=== PATIENT | female | born 1970 | race Caucasian/White ===

== ENCOUNTER 2017-03-10 19:20 | Emergency (ER) | payer MEDICAID ==
[~2017-03-10] VITALS: Ht 165.1 cm; Wt 74.8 kg
[2017-03-10 19:38] LABS: *BILIRUBIN,URIN NEGATIVE (NEGATIVE); *BLOOD, URINE 1+ (NEGATIVE); *CLARITY,URINE SLIGHTLY CLOUDY (CLEAR); *COLOR,URINE YELLOW (YELLOW); *KETONES,URINE 1+ (NEGATIVE); *PROTEIN,URINE NEGATIVE (NEGATIVE); *UROBILINOGEN,URINE 0.2 E.U./dl (NORMAL); NITRITE, URINE NEGATIVE (NEGATIVE)
--- NOTE | 2017-03-10 19:45 | NUR ---
Dr Bonilla into eval patient
[2017-03-10] MEDS ORDERED: INSULIN (19:48)
[2017-03-10] MEDS ORDERED: [UNRECOGNIZED DRUG - REMARK] (19:48)
[2017-03-10 19:54] LABS: LEUKOCYTE ESTERASE ,URINE TRACE (NEGATIVE); UGLUCOSE 2+ (NEGATIVE)
[2017-03-10 19:55] LABS: BACTERIA,URINE MANY /HPF (NONE SEEN); SQUAMOUS EPITHELIAL CELL,UR MODERATE /HPF (NONE SEEN)
[2017-03-10] MEDS ORDERED: IV NORMAL SALINE 1000 ML BAG IV ONE (20:00)
[2017-03-10] MEDS ORDERED: ONDANSETRON 4 MG/2 ML VIAL IV ONE (20:15)
[2017-03-10] MEDS ORDERED: MORPHINE SULFATE 2 MG/1 ML DISP.SYRIN IV ONE (20:15)
[2017-03-10 20:26] LABS: BASOPHILS % (AUTO) 0.1 % (0.0-2.0); EOSINOPHILS % (AUTO) 0.3 % (0.0-7.0); HEMATOCRIT 39.6 % (37-47); HEMOGLOBIN 13.1 G/DL (12.0-16.0); LYMPHOCYTES # (AUTO) 0.7 K/UL (0.8-4.8); LYMPHOCYTES % (AUTO) 5.8 % (20.5-51.5); MEAN CORPUSCULAR HEMOGLOBIN 26.3 UUG (27.0-31.0); MEAN CORPUSCULAR HGB CONC 33 g/dL (32.0-37.0); MEAN CORPUSCULAR VOLUME 79.6 FL (81.0-99.0); MONOCYTES # (AUTO) 1.1 K/UL (0.1-1.30); MONOCYTES % (AUTO) 8.6 % (0.0-11.0); NEUTROPHILS # (AUTO) 10.6 K/UL (1.8-8.9); NEUTROPHILS % (AUTO) 85.2 % (38.5-71.5); PLATELET COUNT (AUTO) 209 K/UL (150-450); RED BLOOD CELL COUNT(AUTO) 4.98 MIL/UL (4.2-5.4); WHITE BLOOD COUNT (AUTO) 12.4 K/UL (4.0-11.2)
[2017-03-10 20:35] LABS: ABG BASE EXCESS -3.1 mmol/L; ABG HCO3 21.3 mmol/L; ABG PCO2 36.3 mmHg (35.0-45.0); ABG PH 7.387 (7.350-7.450); ABG PO2 61.7 mmHg (75.0-100.0); ABG SITE RIGHT BRACHIAL; ABG TOTAL HEMOGLOBIN 13.4 G/dL (12.0-16.0); COHb 2.1 % (0.5-1.5); MetHb 0.1 % (0.0-1.5); O2Hb 89.6 % (94.0-97.0)
[2017-03-10] MEDS ORDERED: MORPHINE SULFATE 4 MG/1 ML DISP.SYRIN ONE (20:39)
[2017-03-10] MEDS ORDERED: ONDANSETRON 4 MG/2 ML VIAL ONE (20:40)
[2017-03-10 20:45] LABS: BILIRUBIN,DIRECT 0.1 mg/dL (0.0-0.2); BILIRUBIN,TOTAL 0.9 mg/dL (0.2-1.0); CREATININE 0.8 mg/dL (0.6-1.3); POTASSIUM 3.9 mmol/L (3.5-5.1); TOTAL PROTEIN, SERUM 8.7 g/dL (6.4-8.2)
[2017-03-10 20:58] LABS: *URINE HCG, QUAL NEGATIVE (NEGATIVE)
[2017-03-10 21:35] LABS: BAND % (MANUAL) 12 % (0-10); LYMPHOCYTES % (MANUAL) 8 % (20-40); MONOCYTES % (MANUAL) 10 % (2-10); NEUTROPHILS % (MANUAL) 70 % (42-75)
--- NOTE | 2017-03-10 23:10 | NUR ---
IV removed. Catheter intact and site benign. Pressure and 4x4 gauze applied to site. No bleeding noted.
--- NOTE | 2017-03-10 23:32 | NUR ---
Patient discharged to home in stable conditon WITH Taking patient home. Written and verbal after care instructions given. Patient verbalizes understanding of instructions. Walked out of ER with steady gait. No distress noted
[2017-03-10 23:33] VITALS: BP 155/88
[2017-03-10 23:47] LABS: VENT MODE Mask - Venturi
[2017-03-11] MEDS ORDERED: METF10002 PO (21:47)
[2017-03-11] MEDS ORDERED: INSU100V7 SQ (21:47)
== END 2017-03-10 23:36 | disposition home or self-care (01) ==
LOC: ER 19:21
DX: N13.2 Hydronephrosis with renal and ureteral calculous obstruction (principal); E11.65 Type 2 diabetes mellitus with hyperglycemia; N83.201 Unspecified ovarian cyst, right side; N28.1 Cyst of kidney, acquired; Z79.4 Long term (current) use of insulin; Z88.0 Allergy status to penicillin; Z90.49 Acquired absence of other specified parts of digestive tract
CPT/HCPCS: 36415; 36600; 71010; 74176; 80048; 80076; 81001; 82962; 83605; 84703; 85025; 85730; 87040 ×2; 87077; 87086; 87186; 93005; 96361; 96374; 99285; A4663; J2270; J2405; J7030 ×2; J7040

== ENCOUNTER 2017-03-11 21:12 | Inpatient (IN) | payer MEDICAID ==
[~2017-03-11] VITALS: Ht 165.1 cm; Wt 79.4 kg
[~2017-03-11 21:12] MED LIST: INSULIN; [UNRECOGNIZED DRUG - REMARK]
[2017-03-11] MEDS ORDERED: NITROFURANTOIN/NITROFURAN MAC 100 MG CAPSULE PO ONE (21:45)
[2017-03-11] MEDS ORDERED: HYDROMORPHONE 1 MG/1 ML DISP.SYRIN IV ONE (21:45)
[2017-03-11] MEDS ORDERED: ONDANSETRON 4 MG/2 ML VIAL IV ONE (21:45)
[2017-03-11] MEDS ORDERED: IV NORMAL SALINE 1000 ML BAG IV ONE (21:45)
[2017-03-11] MEDS ORDERED: CEFTRIAXONE 1 G in IV DEXTROSE 5% 50 ML IV ONE (21:45)
[2017-03-11] MEDS ORDERED: METF10002 PO (21:47)
[2017-03-11] MEDS ORDERED: INSU100V7 SQ (21:47)
[2017-03-11 21:56] LABS: BASOPHILS % (AUTO) 0.2 % (0.0-2.0); EOSINOPHILS % (AUTO) 0.2 % (0.0-7.0); HEMATOCRIT 33.9 % (37-47); LYMPHOCYTES # (AUTO) 1.4 K/UL (0.8-4.8); LYMPHOCYTES % (AUTO) 9.8 % (20.5-51.5); MEAN CORPUSCULAR HEMOGLOBIN 25.8 UUG (27.0-31.0); MEAN CORPUSCULAR HGB CONC 33 g/dL (32.0-37.0); MEAN CORPUSCULAR VOLUME 79.4 FL (81.0-99.0); MONOCYTES # (AUTO) 1.3 K/UL (0.1-1.30); NEUTROPHILS # (AUTO) 11.6 K/UL (1.8-8.9); NEUTROPHILS % (AUTO) 80.8 % (38.5-71.5); PLATELET COUNT (AUTO) 199 K/UL (150-450); RED BLOOD CELL COUNT(AUTO) 4.27 MIL/UL (4.2-5.4); WHITE BLOOD COUNT (AUTO) 14.3 K/UL (4.0-11.2)
[2017-03-11 22:04] LABS: CREATININE 0.6 mg/dL (0.6-1.3); POTASSIUM 3.6 mmol/L (3.5-5.1)
[2017-03-11] MEDS ORDERED: HYDROMORPHONE 1 MG/1 ML DISP.SYRIN ONE (22:04)
[2017-03-11] MEDS ORDERED: CEFTRIAXONE 1 G VIAL ONE (22:05)
[2017-03-11] MEDS ORDERED: NITROFURANTOIN/NITROFURAN MAC 100 MG CAPSULE ONE (22:05)
[2017-03-11] MEDS ORDERED: ONDANSETRON 4 MG/2 ML VIAL ONE (22:05)
--- NOTE | 2017-03-11 22:07 | NUR ---
PER ER MD, PATIENT DOES NOT QUALIFY FOR SEPSIS/SIRS CRITERIA
[2017-03-11 22:10] LABS: BILIRUBIN,DIRECT 0.2 mg/dL (0.0-0.2); BILIRUBIN,TOTAL 1.2 mg/dL (0.2-1.0); TOTAL PROTEIN, SERUM 7.7 g/dL (6.4-8.2)
[2017-03-11] MEDS ORDERED: INSULIN REGULAR, HUMAN 1,000 UNITS/10 ML VIAL IV ONE (22:15)
[2017-03-11] MEDS ORDERED: TDAP DIPH,PERTUSS,TET VAC/PF 0.5 ML DISP.SYRIN IM ONE (22:30)
[2017-03-11] MEDS ORDERED: LIDOCAINE HCL 2% 20 ML VIAL TP ONE (22:30)
[2017-03-11] MEDS ORDERED: INSULIN REGULAR, HUMAN 300 UNIT/3 ML VIAL ONE (22:39)
--- NOTE | 2017-03-12 01:18 | NUR ---
Panel call placed at this time. Awaiting call back from [employer] Gallery Assistant
[2017-03-12] MEDS ORDERED: IV NS 1000 ML 1,000 ML IV ONE (01:30)
[2017-03-12] MEDS ORDERED: CEFTRIAXONE 1 G in IV DEXTROSE 5% 50 ML IV SCH (01:30)
[2017-03-12] MEDS ORDERED: MAGNESIUM HYDROXIDE 30 ML LIQUID UDC PO PRN (01:30)
[2017-03-12] MEDS ORDERED: Z GUARD REMEDY PASTE 57 GM TUBE TOP PRN (01:30)
[2017-03-12] MEDS ORDERED: ONDANSETRON IV *ER 4 MG/2 ML VIAL IV ONE (01:45)
[2017-03-12] MEDS ORDERED: ONDANSETRON 4 MG/2 ML VIAL ONE ×2 (01:56→06:55)
--- NOTE | 2017-03-12 01:58 | NUR ---
Pt. admitted to Med Surg , under care of Dr. Coleman. Dx : Pyelonephritis Belongs List completed
[2017-03-12 02:15] VITALS: BP 125/65
--- NOTE | 2017-03-12 02:20 | NUR ---
RECEIVED PATIENT FROM E.. ADMITTED DUE TO LEFT-SIDED FLANK PAIN. NOTED DR. ARITA ABOUT ADMISSION. ALERT AND ORIENTED X4. STARTED NS AT 100ML/HR VIA RT AC. GIVEN DOSE OF IV ABX ORDERED. ORIENTED PATIENT ABOUT THE ROOM FACILITY. CALL LIGHT WITHIN REACH.
[2017-03-12] MEDS ORDERED: CEFTRIAXONE 1 G VIAL ONE (03:05)
[2017-03-12] MEDS ORDERED: DEXTROSE 50% 50 ML DISP.SYRIN IV PRN (03:30)
[2017-03-12 06:16] VITALS: BP 147/76
[2017-03-12] MEDS: BLOOD SUGAR DIAGNOSTIC 1 EACH STRIP VI SCH ×4 (06:38→20:44)
[2017-03-12] MEDS: ONDANSETRON 4 MG/2 ML VIAL IV PRN (06:42)
--- NOTE | 2017-03-12 07:25 | NUR ---
RECEIVED REPORT FROM CREDIT VERIFIER NURSE, PATIENT IN BED ASLEEP, NO EVIDENCE OF DISTRESS NOTED. BED IN LOW POSITION, SIDE RAILS UP X2.
[2017-03-12] MEDS: METFORMIN HCL 500 MG TABLET PO SCH ×2 (08:11→17:07)
[2017-03-12] MEDS ORDERED: METFORMIN HCL 850 MG TABLET PO SCH (09:00)
[2017-03-12] MEDS ORDERED: INSULIN GLARGINE,HUM 300 UNITS/3 ML CARTRIDGE SQ SCH (09:00)
[2017-03-12] MEDS: INSULIN DETEMIR 300 UNIT/3 ML CARTRIDGE SQ SCH ×2 (09:37→16:52)
[2017-03-12] MEDS: INSULIN REGULAR, HUMAN 300 UNIT/3 ML VIAL SQ PRN ×4 (09:38→20:51)
[2017-03-12 10:40] VITALS: BP 132/64
[2017-03-12] MEDS: ACETAMINOPHEN 325 MG TABLET PO PRN ×2 (10:40→16:49)
--- NOTE | 2017-03-12 10:52 | NUR ---
UPON TAKING ROUTINE VITALS, PATIENT'S TEMPERATURE NOTED TO BE 102.7, COOLING MEASURES INITIATED, TYLENOL GIVEN, AND LACTIC ACID LEVEL ORDERED ALONG WITH BLOOD CULTURES.
[2017-03-12] MEDS: GENTAMICIN SULFATE IV SCH (11:30)
[2017-03-12] MEDS: DEXTROSE 5% IV SCH (11:30)
--- NOTE | 2017-03-12 11:37 | NUR ---
Clinical Pharmacy Note: Gentamicin Pharmacy to Dose Subjective: To start gentamicin in this 46 y/o female for indication of UTI Objective: height 165 cm weight 79kg IBW 57 kg DW 65.8 BUN 10 Scr 0.6 Wbc 14.3 Temp 102.9 Assessment/Plan As patient appears to have no exclusion criteria for extended dosing, will start gentamicin 450mg (~6.8mg/kg) Q24hr per protocol for estimated trough 0.01, peak 21.1. First dose today at 1130. Ordered random 12hr post first dose, due tonight at 2330. Will check level tomorrow am and adjust once daily dosing to longer frequency if needed based on level. Will change dosing to conventional if renal function or clinical status changes. Will follow
--- NOTE | 2017-03-12 11:51 | NUR ---
PATIENT'S TEMPERATURE HAS REDUCED DOWN TO 101.4. LACTIC ACID LEVEL RETURNED FROM LAB 1.1.
[2017-03-12 16:00] VITALS: BP 108/57
--- NOTE | 2017-03-12 16:40 | NUR ---
PATIENT'S TEMPERATURE IS TRENDING DOWNWARD IN EXPECTED DIRECTION. COOLING MEASURES CONTINUE AND ADDITIONAL TYLENOL ADMINISTERED.
--- NOTE | 2017-03-12 16:49 | NUR ---
Patient's fever continues to trend down. Additional tylenol given, and cooling measures continued.
--- NOTE | 2017-03-12 18:49 | NUR ---
Patient is in bed, no evidence of distress noted, bed in low position, side rails up x2.
[2017-03-12 20:00] VITALS: BP 100/52
--- NOTE | 2017-03-12 20:00 | NUR ---
PT RECEIVED LAYING IN BED SEMI FOWLERS, NO ACUTE DISTRESS NOTED. PT HAS HEP LOCK IN RIGHT AC, INTACT AND PATENT. ON ROOM AIR. DENIES ANY PHYSICAL DISCOMFORT. WILL CONTINUE TO MONITOR FOR SAFETY.
[2017-03-12] MEDS: CEFTRIAXONE 1 G in IV DEXTROSE 5% 50 ML IV SCH (20:36)
[2017-03-13 00:25] LABS: *BILIRUBIN,URIN NEGATIVE (NEGATIVE); *BLOOD, URINE 1+ (NEGATIVE); *CLARITY,URINE CLEAR (CLEAR); *COLOR,URINE YELLOW (YELLOW); *KETONES,URINE 4+ (NEGATIVE); *PROTEIN,URINE 1+ (NEGATIVE); LEUKOCYTE ESTERASE ,URINE TRACE (NEGATIVE); NITRITE, URINE NEGATIVE (NEGATIVE)
[2017-03-13 00:40] LABS: UGLUCOSE 2+ (NEGATIVE)
[2017-03-13 00:41] LABS: BACTERIA,URINE NONE SEEN /HPF (NONE SEEN); SQUAMOUS EPITHELIAL CELL,UR MODERATE /HPF (NONE SEEN); YEAST,URINE MANY /HPF (NONE SEEN)
[2017-03-13] MEDS: ONDANSETRON 4 MG/2 ML VIAL IV PRN (00:53)
--- NOTE | 2017-03-13 01:00 | NUR ---
PT HAD EPISODE OF VOMITING X1, BROWN AND LIQUID IN COLOR. PT GIVEN ZOFRAN IV, TOLERATED WELL. WILL CONTINUE TO MONITOR FOR SAFETY.
[2017-03-13 06:28] LABS: BASOPHILS % (AUTO) 0.2 % (0.0-2.0); EOSINOPHILS % (AUTO) 0.3 % (0.0-7.0); HEMATOCRIT 30.3 % (31.2-41.9); HEMOGLOBIN 10.5 g/dL (10.9-14.3); LYMPHOCYTES # (AUTO) 0.9 K/uL (20.0-40.0); LYMPHOCYTES % (AUTO) 8.9 % (20.5-51.5); MEAN CORPUSCULAR HEMOGLOBIN 27.4 uug (24.7-32.8); MEAN CORPUSCULAR HGB CONC 35 g/dL (32.3-35.6); MEAN CORPUSCULAR VOLUME 79.4 fL (75.5-95.3); MONOCYTES % (AUTO) 9.9 % (0.0-11.0); NEUTROPHILS # (AUTO) 7.8 K/uL (1.8-8.9); NEUTROPHILS % (AUTO) 80.7 % (38.5-71.5); PLATELET COUNT (AUTO) 182 K/uL (179-408); RED BLOOD CELL COUNT(AUTO) 3.81 MIL/uL (3.63-4.92); WHITE BLOOD COUNT (AUTO) 9.7 K/uL (3.8-11.8)
[2017-03-13 06:30] VITALS: BP 108/60
[2017-03-13 06:40] LABS: CARBON DIOXIDE 28 mmol/L (21-32); CHLORIDE 99 mmol/L (98-107); CHOLESTEROL 150 mg/dL (<200); CREATININE 0.5 mg/dL (0.6-1.3); GLUCOSE 170 mg/dL (74-106); HDL CHOLESTEROL 21 mg/dL (40-60); MAGNESIUM 1.7 mg/dL (1.8-2.4); PHOSPHOROUS 2.1 mg/dL (2.5-4.9); POTASSIUM 3.4 mmol/L (3.5-5.1); TRIGLYCERIDES 110 MG/DL (30-150); UREA NITROGEN, BLOOD 7 mg/dL (7-18)
--- NOTE | 2017-03-13 06:44 | NUR ---
URINE LAB RESULTS CAME BACK +2 GLUCOSE AND +4 KETONES, DR ARITA WAS MADE AWARE. NO INTERVENTIONS PROVIDED.
[2017-03-13] MEDS: BLOOD SUGAR DIAGNOSTIC 1 EACH STRIP VI SCH ×4 (06:48→20:35)
--- NOTE | 2017-03-13 08:00 | NUR ---
AWAKE ALERT SPEAK FRENCH BUT ABLE TO FOLLOW SIMPLE DIRECTION WELL NO SOB OR PAIN HL INPLACE RAG #[id number] RESTING WELL WITH CALL CASTELAN IN REACH AND REMIND TO TONI WHEN NEEDED
[2017-03-13] MEDS: METFORMIN HCL 500 MG TABLET PO SCH ×2 (08:43→17:26)
[2017-03-13] MEDS: INSULIN DETEMIR 300 UNIT/3 ML CARTRIDGE SQ SCH ×2 (08:51→20:38)
[2017-03-13] MEDS: INSULIN REGULAR, HUMAN 300 UNIT/3 ML VIAL SQ PRN ×4 (08:51→20:36)
[2017-03-13] MEDS: ACETAMINOPHEN 325 MG TABLET PO PRN (10:48)
--- NOTE | 2017-03-13 11:32 | NUR ---
Clinical Pharmacy Note: Gentamicin Pharmacy to Dose Subjective: To start gentamicin in this 46 y/o female for indication of UTI Objective: height 165 cm weight 79kg IBW 57 kg DW 65.8 BUN 7 Scr 0.5 Wbc 9.7 Temp 98.4 Assessment/Plan patient has no exclusion criteria for extended dosing ==> on Gentamicin 450mg (~6.8mg/kg) Q24hr. She received first dose on 03/12@ 1130. The random level 12hr post first dose = 0.4 @ 23:40. Level within therapeutic range. Will continue with same dose and frequency for now. Will change dosing to conventional if renal function or clinical status changes. Will follow
[2017-03-13] MEDS: DEXTROSE 5% IV SCH (11:49)
[2017-03-13] MEDS: GENTAMICIN SULFATE IV SCH (11:49)
[2017-03-13 11:52] VITALS: BP 109/55
--- NOTE | 2017-03-13 12:00 | NUR ---
TEMP 100.2 F TYLENOL PRN GIVEN AND ENC TO DRINK FLD RUBIA WELL EAT LUNCH WELL NO N/V
[2017-03-13] MEDS ORDERED: NEUTRA PHOS PACKET PO ONE (15:15)
[2017-03-13 15:44] VITALS: BP 103/57
[2017-03-13] MEDS ORDERED: MAGNESIUM SULFATE/D5W 100 ML IV SCH (16:00)
[2017-03-13] MEDS ORDERED: MAGNESIUM OXIDE 400 MG TABLET PO ONE (16:00)
--- NOTE | 2017-03-13 16:00 | NUR ---
LAB MICRO WAS CALL FOR RESULT OF URINE C&S [employer]STER[employer] PROGRAMMER STATE IT TOO SOON FOR RESULT POSS TOMORROW
[2017-03-13] MEDS ORDERED: POTASSIUM CHLORIDE 20 MEQ TAB.PRT.SR PO ONE (16:30)
--- NOTE | 2017-03-13 18:00 | NUR ---
STABLE HEMODYNAMIC STATUS SAFETY MEASURE PROVIDED CALL LIGHT IN REACH
[2017-03-13 20:30] VITALS: BP 117/64
[2017-03-13] MEDS: CEFTRIAXONE 1 G in IV DEXTROSE 5% 50 ML IV SCH (20:38)
[2017-03-13] MEDS: LACTOBACILLUS RHAMNOSUS GG 1 EACH CAPSULE PO SCH (20:38)
--- NOTE | 2017-03-13 21:00 | NUR ---
PT'S A/A/O X4,DENIED OF PAIN OR ANY DISCOMFORT.PT AMBULATED STEADY TO BATHROOM AND STATED THAT SHE HAD BM X1:NORMAL STOOL NOTED.SNACK'S GIVEN TO PT DUE TO INSULIN'S GIVEN(SEE RECORD);EDUCATED TO PT;PT VERBALIZED UNDERSTANDING AND TOLERATED WELL NOTED. VISITED PT AT THIS TIME;NO FURTHER ORDER UPON THIS TIME NOTED.KEPT COMFORT.UPDATED THE PLAN OF CARE TO PT;SHE VERBALIZED UNDERSTANDING AND COOPERATIVE NOTED.KEPT COMFORT.CALL-LIGHT WITHIN REACH.
--- NOTE | 2017-03-13 23:19 | NUR ---
PT SLEPT WELL,KEPT CALL-LIGHT WITHIN REACH.NO DISTRESS NOTED.ENDORSED TO JEANIE/SEBASTIAN TO CONTINUE CARE.
[2017-03-14] MEDS: IV NS 1000 ML 1,000 ML IV PRN ×2 (02:43→13:47)
[2017-03-14 05:00] VITALS: BP 104/62
[2017-03-14] MEDS: HYDROCODONE/APAP 5-325MG TABLET PO PRN ×2 (06:33→11:19)
[2017-03-14] MEDS: BLOOD SUGAR DIAGNOSTIC 1 EACH STRIP VI SCH ×4 (06:33→20:46)
[2017-03-14 06:41] LABS: BASOPHILS % (AUTO) 0.2 % (0.0-2.0); EOSINOPHILS # (AUTO) 0.1 K/uL (0.0-0.7); EOSINOPHILS % (AUTO) 1.8 % (0.0-7.0); LYMPHOCYTES # (AUTO) 1.4 K/UL (0.8-4.8); LYMPHOCYTES % (AUTO) 21.2 % (20.5-51.5); MEAN CORPUSCULAR HEMOGLOBIN 25.8 UUG (27.0-31.0); MEAN CORPUSCULAR HGB CONC 32 g/dL (32.0-37.0); MONOCYTES # (AUTO) 0.8 K/UL (0.1-1.30); MONOCYTES % (AUTO) 12.5 % (0.0-11.0); NEUTROPHILS # (AUTO) 4.1 K/UL (1.8-8.9); NEUTROPHILS % (AUTO) 64.3 % (38.5-71.5); PLATELET COUNT (AUTO) 214 K/UL (150-450); RED BLOOD CELL COUNT(AUTO) 3.87 MIL/UL (4.2-5.4); WHITE BLOOD COUNT (AUTO) 6.4 K/UL (4.0-11.2)
--- NOTE | 2017-03-14 06:54 | NUR ---
PATIENT AWAKE IN BED. IVF INFUSING WELL TO RIGHT AC. C/O PAIN IN LOWER BACK, PATIENT WAS GIVEN NORCO 1 TAB PO PRN FOR PAIN. VSS. CALL LIGHT IN REACH. ALL NEEDS ATTENDED. WILL CONTINUE TO MONITOR AND ASSESS.
[2017-03-14 07:07] LABS: CARBON DIOXIDE 28 mmol/L (21-32); CHLORIDE 102 mmol/L (98-107); CREATININE 0.4 mg/dL (0.6-1.3); GLUCOSE 125 mg/dL (74-106); MAGNESIUM 1.7 mg/dL (1.8-2.4); POTASSIUM 3.1 mmol/L (3.5-5.1); UREA NITROGEN, BLOOD 6 mg/dL (7-18)
--- NOTE | 2017-03-14 08:00 | NUR ---
RESTING WELL NO SOB OR PAIN ,CONTINUE IVF INFUSION WELL RAC CALL LIGHT WITHIN REACH AND INSTRUCTION TO CALL WHEN NEEDED
[2017-03-14] MEDS: LACTOBACILLUS RHAMNOSUS GG 1 EACH CAPSULE PO SCH ×2 (08:24→20:42)
[2017-03-14] MEDS: METFORMIN HCL 500 MG TABLET PO SCH ×2 (08:24→17:14)
[2017-03-14] MEDS: INSULIN DETEMIR 300 UNIT/3 ML CARTRIDGE SQ SCH ×2 (08:28→20:46)
--- NOTE | 2017-03-14 10:30 | NUR ---
DR AQUINO WAS INFORM OF URINE CULTURE RESULT "YEAST" AND K+3.1/MG+WAS 1.7
[2017-03-14 11:10] VITALS: BP 97/57
[2017-03-14] MEDS ORDERED: POTASSIUM CHLORIDE 20 MEQ TAB.PRT.SR PO ONE (13:00)
[2017-03-14] MEDS: MAGNESIUM SULFATE/D5W 100 ML IV SCH ×2 (13:44→14:23)
[2017-03-14] MEDS: FLUCONAZOLE 200 MG/NS 100ML IV 100 MG in PREMIXED 1 EACH IV SCH (14:36)
[2017-03-14 15:44] VITALS: BP 92/56
--- NOTE | 2017-03-14 17:00 | NUR ---
STABLE CONDITION NO SOB OR FEVER OR CHILL SAFETY MEASURE PROVIDED CALL CASTELAN IN REACH CONTINUE IVF AND ANTIBIOTICS
[2017-03-14] MEDS: INSULIN REGULAR, HUMAN 300 UNIT/3 ML VIAL SQ PRN ×2 (17:16→20:45)
[2017-03-14 20:29] VITALS: BP 138/71
[2017-03-14] MEDS: CEFTRIAXONE 1 G in IV DEXTROSE 5% 50 ML IV SCH (20:42)
[2017-03-14] MEDS ORDERED: SIMVASTATIN 10 MG TABLET PO SCH (21:00)
[2017-03-15 05:13] VITALS: BP 112/64
[2017-03-15] MEDS: BLOOD SUGAR DIAGNOSTIC 1 EACH STRIP VI SCH ×2 (06:36→11:56)
[2017-03-15 06:39] LABS: CARBON DIOXIDE 26 mmol/L (21-32); CHLORIDE 101 mmol/L (98-107); CREATININE 0.5 mg/dL (0.6-1.3); GLUCOSE 92 mg/dL (74-106); MAGNESIUM 1.5 mg/dL (1.8-2.4); POTASSIUM 3.5 mmol/L (3.5-5.1); UREA NITROGEN, BLOOD 5 mg/dL (7-18)
--- NOTE | 2017-03-15 06:54 | NUR ---
SLEPT INTERMITTENTLY. AFEBRILE. DENIES PAIN DURING SHIFT. IVF STILL INFUSING. BLOOD SUGAR IN AM WAS 88. WILL ENDORSE TO AM NURSE.
--- NOTE | 2017-03-15 07:20 | NUR ---
RECEIVED REPORT FROM SUPERVISOR PUMPING STATION NURSE, PATIENT AWAKE IN BED, NO EVIDENCE OF DISTRESS, NO REPORTED PAIN. BED IN LOW POSITION, SIDE RAILS UP X2.
[2017-03-15] MEDS: INSULIN DETEMIR 300 UNIT/3 ML CARTRIDGE SQ SCH (08:28)
[2017-03-15] MEDS: METFORMIN HCL 500 MG TABLET PO SCH (08:29)
[2017-03-15] MEDS: LACTOBACILLUS RHAMNOSUS GG 1 EACH CAPSULE PO SCH (08:29)
[2017-03-15 11:28] VITALS: BP 101/59
[2017-03-15] MEDS ORDERED: ACET325T53 PO (13:04)
[2017-03-15] MEDS ORDERED: SIMV10TA6 PO (13:04)
[2017-03-15] MEDS ORDERED: FLUC150T PO (13:04)
[2017-03-15] MEDS ORDERED: LEVO500T2 PO (13:04)
[2017-03-15] MEDS: FLUCONAZOLE 200 MG/NS 100ML IV 100 MG in PREMIXED 1 EACH IV SCH (14:02)
[2017-03-15] MEDS ORDERED: MAGNESIUM OXIDE 400 MG TABLET PO ONE (15:15)
[2017-03-15 15:33] VITALS: BP 115/64
--- NOTE | 2017-03-15 17:35 | NUR ---
PATIENT WAS PROVIDED DISCHARGE EDUCATION, IV REMOVED, PRESCRIPTION PROVIDED, AND PATIENT WAS RELEASED TO FOR TRANSPORT HOME. DIRECTION TO FOLLOW UP WITH OUTSIDE PROVIDER FOR OVARIAN CYST INSTRUCTED.
== END 2017-03-15 17:35 | disposition home or self-care (01) | DRG 720 ==
LOC: ER 21:13 → MED 03-12 01:47
PROVIDERS: ADMIT Family Medicine; ATTEND Family Medicine
DX: A41.9 Sepsis, unspecified organism (principal); E10.65 Type 1 diabetes mellitus with hyperglycemia; R16.2 Hepatomegaly with splenomegaly, not elsewhere classified; N28.1 Cyst of kidney, acquired; B37.49 Other urogenital candidiasis; E78.5 Hyperlipidemia, unspecified; N13.6 Pyonephrosis; E66.9 Obesity, unspecified; Z79.4 Long term (current) use of insulin; Z90.49 Acquired absence of other specified parts of digestive tract; K42.9 Umbilical hernia without obstruction or gangrene; Z68.29 Body mass index [BMI] 29.0-29.9, adult; N83.201 Unspecified ovarian cyst, right side; Z88.0 Allergy status to penicillin
CPT/HCPCS: 36415; 83605; 83690; 83735; 84100; 84703; 85025; 87040; 87086; A4663; J0696; J1170; J1450; J1580; J1815; J2405; J3475; J3490; J7030; J7060

== ENCOUNTER 2017-12-08 19:48 | Emergency (ER) | payer MEDICAID ==
[~2017-12-08] VITALS: Ht 165.1 cm; Wt 82.6 kg
[~2017-12-08 19:48] MED LIST changes: +ACET325T53 PO; +FLUC150T PO; +INSU100V7 SQ; -INSULIN; +LEVO500T2 PO; +METF10004 PO; +SIMV10TA6 PO; -[UNRECOGNIZED DRUG - REMARK]
[2017-12-08 20:25] LABS: *BILIRUBIN,URIN NEGATIVE (NEGATIVE); *BLOOD, URINE 3+ (NEGATIVE); *COLOR,URINE PINK (YELLOW); *KETONES,URINE NEGATIVE (NEGATIVE); *PROTEIN,URINE NEGATIVE (NEGATIVE); *UROBILINOGEN,URINE 0.2 E.U./dl (NORMAL); LEUKOCYTE ESTERASE ,URINE NEGATIVE (NEGATIVE); NITRITE, URINE NEGATIVE (NEGATIVE); UGLUCOSE 2+ (NEGATIVE)
[2017-12-08 20:27] LABS: *CLARITY,URINE CLOUDY (CLEAR)
[2017-12-08 20:30] LABS: RBC,URINE TNTC /HPF (0-3); SQUAMOUS EPITHELIAL CELL,UR MODERATE /HPF (NONE SEEN); WBC,URINE 0-3 /HPF (0-3)
[2017-12-08 20:31] LABS: *URINE HCG, QUAL NEGATIVE (NEGATIVE)
[2017-12-08 21:14] LABS: BASOPHILS % (AUTO) 0.3 % (0.0-2.0); EOSINOPHILS # (AUTO) 0.1 K/uL (0.0-0.7); EOSINOPHILS % (AUTO) 2.2 % (0.0-7.0); HEMOGLOBIN 11.3 g/dL (10.9-14.3); LYMPHOCYTES # (AUTO) 1.9 K/uL (20.0-40.0); LYMPHOCYTES % (AUTO) 31.6 % (20.5-51.5); MEAN CORPUSCULAR HEMOGLOBIN 26.2 uug (24.7-32.8); MEAN CORPUSCULAR HGB CONC 33 g/dL (32.3-35.6); MONOCYTES # (AUTO) 0.5 K/uL (2.0-10.0); MONOCYTES % (AUTO) 8.5 % (0.0-11.0); NEUTROPHILS # (AUTO) 3.4 K/uL (1.8-8.9); NEUTROPHILS % (AUTO) 57.4 % (38.5-71.5); PLATELET COUNT (AUTO) 242 K/uL (179-408); WHITE BLOOD COUNT (AUTO) 5.9 K/uL (3.8-11.8)
[2017-12-08 21:20] LABS: CREATININE 0.8 mg/dL (0.6-1.3); POTASSIUM 4.1 mmol/L (3.5-5.1)
[2017-12-08 21:31] LABS: BILIRUBIN,DIRECT 0.1 mg/dL (0.0-0.2); BILIRUBIN,TOTAL 0.3 mg/dL (0.2-1.0); TOTAL PROTEIN, SERUM 6.9 g/dL (6.4-8.2)
[2017-12-08] MEDS ORDERED: INSULIN REGULAR, HUMAN 1,000 UNITS/10 ML VIAL SUBCUT ONE (21:45)
[2017-12-08] MEDS ORDERED: INSULIN REGULAR, HUMAN 300 UNIT/3 ML VIAL ONE (21:52)
--- NOTE | 2017-12-08 21:55 | NUR ---
Patient discharged to home in stable conditon. Written and verbal after care instructions given. Patient verbalizes understanding of instructions.
[2017-12-08 21:58] VITALS: BP 118/71
== END 2017-12-08 21:59 | disposition home or self-care (01) ==
LOC: ER 19:51
DX: M94.0 Chondrocostal junction syndrome [Tietze] (principal); E11.65 Type 2 diabetes mellitus with hyperglycemia; Z88.0 Allergy status to penicillin; Z79.4 Long term (current) use of insulin; Z79.2 Long term (current) use of antibiotics; Z79.84 Long term (current) use of oral hypoglycemic drugs; Z79.899 Other long term (current) drug therapy
CPT/HCPCS: 36415; 71045; 74176; 80048; 80076; 81001; 83690; 84484; 84703; 85025; 85730; 93005; 96372; 99285; A4663; J1815; 70030-TC

== ENCOUNTER 2018-12-17 19:29 | Emergency (ER) | payer MEDICAID ==
[~2018-12-17] VITALS: Ht 167.6 cm; Wt 81.6 kg
[~2018-12-17 19:29] MED LIST changes: -FLUC150T PO; -LEVO500T2 PO; +METF-442 PO; -METF10004 PO
[2018-12-17 20:17] LABS: *BILIRUBIN,URIN NEGATIVE (NEGATIVE); *BLOOD, URINE 3+ (NEGATIVE); *CLARITY,URINE SLIGHTLY CLOUDY (CLEAR); *COLOR,URINE PINK (YELLOW); *KETONES,URINE NEGATIVE (NEGATIVE); *UROBILINOGEN,URINE 0.2 E.U./dl (NORMAL); LEUKOCYTE ESTERASE ,URINE NEGATIVE (NEGATIVE); NITRITE, URINE NEGATIVE (NEGATIVE); PH,URINE 5.5 (5.0-8.0); UGLUCOSE 2+ (NEGATIVE)
[2018-12-17 20:21] LABS: RBC,URINE TNTC /HPF (0-3); SQUAMOUS EPITHELIAL CELL,UR MODERATE /HPF (NONE SEEN); WBC,URINE 0-3 /HPF (0-3)
[2018-12-17] MEDS ORDERED: IV NORMAL SALINE 1000 ML BAG IV ONE (21:15)
[2018-12-17] MEDS ORDERED: METOCLOPRAMIDE HCL 10 MG/2 ML VIAL IV ONE (21:15)
[2018-12-17] MEDS ORDERED: KETOROLAC TROMETHAMINE 15 MG INJ IV ONE (21:15)
[2018-12-17 21:25] LABS: BASOPHILS % (AUTO) 0.3 % (0.0-2.0); EOSINOPHILS # (AUTO) 0.2 K/uL (0.0-0.7); HEMATOCRIT 29.4 % (31.2-41.9); HEMOGLOBIN 9.4 g/dL (10.9-14.3); LYMPHOCYTES # (AUTO) 2.2 K/uL (20.0-40.0); MEAN CORPUSCULAR HEMOGLOBIN 22.2 uug (24.7-32.8); MEAN CORPUSCULAR HGB CONC 32 g/dL (32.3-35.6); MEAN CORPUSCULAR VOLUME 69.3 fL (75.5-95.3); MONOCYTES # (AUTO) 0.6 K/uL (2.0-10.0); NEUTROPHILS % (AUTO) 62.7 % (38.5-71.5); PLATELET COUNT (AUTO) 237 K/uL (179-408); RED BLOOD CELL COUNT(AUTO) 4.24 MIL/uL (3.63-4.92)
[2018-12-17 21:44] LABS: CREATININE 0.6 mg/dL (0.6-1.3)
[2018-12-17 21:48] LABS: BILIRUBIN,DIRECT 0.1 mg/dL (0.0-0.2); BILIRUBIN,TOTAL 0.3 mg/dL (0.2-1.0)
[2018-12-17] MEDS ORDERED: KETOROLAC TROMETHAMINE 15 MG INJ ONE (21:56)
[2018-12-17] MEDS ORDERED: METOCLOPRAMIDE HCL 10 MG/2 ML VIAL ONE (21:56)
--- NOTE | 2018-12-17 22:30 | NUR ---
PT RECEIVED AMBULATORY C/O ABD PAIN. MD AT BEDSIDE FOR HX AND PHYS KEPT WARM DRY AND COMFORTABLE
--- NOTE | 2018-12-18 00:35 | NUR ---
Patient discharged to home in stable conditon. Written and verbal after care instructions given. Patient verbalizes understanding of instructions. AMBULATORY
[2018-12-18 00:37] VITALS: BP 110/80
== END 2018-12-18 00:38 | disposition home or self-care (01) ==
LOC: ER 19:32
DX: R10.12 Left upper quadrant pain (principal); R10.32 Left lower quadrant pain; E11.9 Type 2 diabetes mellitus without complications; E78.5 Hyperlipidemia, unspecified; Z88.0 Allergy status to penicillin; Z79.4 Long term (current) use of insulin; Z79.899 Other long term (current) drug therapy; Z90.49 Acquired absence of other specified parts of digestive tract
CPT/HCPCS: 36415; 71045; 74176; 80048; 80076; 81000; 81001; 83690; 84484; 84702; 85025; 87086; 93005; 96374; 96375; 99284; J1885; J2765; 70030-TC; 87077; A4663; J7030